=== PATIENT | male | born 1980 | race Two or more races ===

== ENCOUNTER 2023-05-03 22:51 | Emergency (ER) | payer OTHER, SELFPAY ==
[2023-05-03 23:07] VITALS: BP 121/64; PULSE 117; RESP 18; TEMP 37.4; O2SAT 96; BMI 36.7
--- NOTE | 2023-05-04 00:15 | MHC.EDTECH ---
Patient said he not able to give urine sample at this time .
[2023-05-04 00:17] LABS: MANUAL DIFF FLAG NO
[2023-05-04 00:21] LABS: Basophils Percent Auto 0.2 % (0-2); Eosinophils Percent Auto 0.1 % (0-4); Hematocrit 43.4 % (42.0-52.0); Hemoglobin 15.2 g/dl (14.0-18.0); Imm Gran Abs Auto 0.02 X10*3/uL (0.00-0.03); Imm Gran Pct Auto 0.2 % (0.0-0.4); Lymphocytes Absolute Auto 0.5 X10*3/uL (1.2-4.9); Lymphocytes Percent Auto 4.8 % (20-40); Mean Corpuscular Volume 82.7 fL (80.0-98.0); Mean Platelet Volume 10.4 fL (9.4-12.4); Monocytes Absolute Auto 0.7 X10*3/uL (0.1-1.2); Monocytes Percent Auto 7.4 % (2-11); Neutrophils Absolute Auto 8.2 x10*3/uL (2.0-8.3); Neutrophils Percent Auto 87.3 % (45-73); Platelet Count 197 X10*3/uL (160-400); Red Blood Count 5.25 X10*6/uL (4.60-5.80); White Blood Count 9.4 X10*3/uL (4.8-10.8)
[2023-05-04 00:45] LABS: Appearance Urine Clear; Color Urine Yellow; Glucose Urine UA Negative (Negative); Leukocyte Esterase Urine Negative (Negative); Nitrite Urine Negative (Negative); PH 6.5 (5.0-9.0); Specific Gravity - Urine >= 1.030 (1.005-1.025); UMIC TRIGGER UACC YES; Urine Blood Negative (Negative); Urine Ketones Negative (Negative); Urine Protein 30 (1+) mg/dL (Neg-Trace)
[2023-05-04 00:50] LABS: Bacteria Urine None Seen (None Seen); Hyaline Casts Urine 0-2 /LPF (0-2); RBC Urine 0-2 /HPF (0-2); Squamous Epithelial Cell Urine 0-2 /HPF (0-2); WBC Urine 0-5 /HPF (0-5)
[2023-05-04 01:11] LABS: Alanine Aminotransferase 45 U/L (0-40); Albumin Level 4.5 g/dL (3.5-5.0); Alkaline Phosphatase 90 U/L (39-117); Anion Gap 12 (12-20); Aspartate Amino Transferase 34 U/L (5-37); Bilirubin Direct 0.2 mg/dL (0.0-0.5); Bilirubin Total 0.5 mg/dL (0.0-1.0); Blood Urea Nitrogen 19 mg/dL (9-16); Calcium 9.6 mg/dL (8.4-10.2); Carbon Dioxide 25 mmol/L (22-29); Chloride 106 mmol/L (96-108); Creatinine Clr Calc Pharmacy 91.2; Estimated Glomerular Filt Rate > 60; Glucose Random 109 mg/dL (60-115); Lipase 19 U/L (8-78); Potassium 4.2 mmol/L (3.3-5.1); Sodium 139 mmol/L (135-145); Total Protein 7.9 g/dL (6.5-8.0)
[2023-05-04 01:37] VITALS: BP 128/98; PULSE 106; RESP 18; TEMP 37.3; O2SAT 97
--- OUTSIDE RECORDS SUMMARY | 2023-05-04 03:07 | XMS_ITS | Continuity of Care Document ---
Author Name Unknown Organization [facility] ter Address [address] [place] [id number]- Care Team Providers Care Creative Specialist Name Role Phone Not on Staff, PCP Primary Care Physician Unavail able [place] [facility] [place] 10/10/22 - 10/11/[address] [address]- Encounter Diagnosis Headache(Final) - 10/10/22 Discharge Disposition: A-D/C Home Attending Physician: Tonie Ghosh DO Admitting Physician: Tonie Ghosh DO Referring Physician: Not on Staff, Referring MD Allergies, Adverse Reactions, Alerts No Known Allergies Immunizations Given and Recorded Vaccine Date Status Refusal Reason tetanus/diphtheria/pertussis, acel(Tdap) 11/14/13 Given influenza virus vaccine, inactivated 12/25/12 Give n Medications chlorproMAZINE 10 mg oral tablet 1 tablet = 10 mg, By Mouth, Every 6 hours, # 10 tablet, 0 Refills, Maintenance, 10/11/22 0:14:00 EDT, Tablet, [facility]/pharmacy #[id number], Partial fill upon patient request if the prescription is for a schedule II opioid drug., 164, cm, 10/10/22 23:54:00 EDT,... Start Date: 10/11/22 Status: Ordered gabapentin 400 mg oral capsule 1 capsule = 400 mg, By Mouth, 3 times a day, # 90 capsule, 1 Refills, Maintenance, 05/14/15 14:40:30, 1 capsule By Mouth 3 times a day Start Date: 05/14/15 Status: Ordered ibuprofen 600 mg oral tablet 600 mg, 1, tablet, By Mouth, Every 8 hours, # 30 tablet, Refills 0, Tot. Refills 0, Maintenance, 05/25/16 14:02:01, Print Requisition Start Date: 05/25/16 Status: Ordered lidocaine 2% topical gel with applicator 5 mL = 0.1 Gm, Topically, Once, Apply to affected area twice daily, # 30 mL, 1 Refills, Soft Stop, 05/14/15 14:41:51, Gel, Instructions in Hungarian please, 5 mL Topically Once,Instr:Apply to affected area twice daily Start Date: 05/14/15 Status: Ordered Lidoderm 5% film 1 patch, Topically, Daily, remove patches after 12 hours, # 7 patch, 0 Refills, Maintenance, 08/01/18 11:32:51 EDT Start Date: 08/01/18 Stop Date: 08/08/18 Status: Ordered traMADol 50 mg oral tablet 1 tablet = 50 mg, By Mouth, Every 4 hours, PRN Pain, # 12 tablet, 0 Refills, Maintenance, 07/14/17 5:50:13 EDT, Tablet Start Date: 07/14/17 Status: Ordered Problem List Condition Confirmation Course Effective Dates Status H ealth Status Informant Anemia associated with acute blood loss Confirmed 07/18/12 Active Chronic back pain Confirmed Active Contusion of Chest Wall Confirmed 07/18/12 Active Depression Confirmed Active History of lipoma Confirmed Active Multiple closed fractures of ribs Confirmed 07/18/12 Active Obese class II Confirmed Active Obesity Confirmed Active Postoperative infection Confirmed Active Traumatic hemothorax Confirmed Active Traumatic pneumothorax without open wound into thorax Confirmed Active Results Radiology Reports * Exam Date Time Procedure Performing Provider Status 10/10/22 11:[address] Angio Neck Yared Catalan Au th (Verified) Notes: (CT Angio Neck) Reason For Exam: ? vertebral diseection;Other: RESULT: CT Angio Neck CT Angio Head, CT Angio Neck Hx of Present Illness: Atraumatic headache and neck pain x3 weeks, took tylenol with no relief; Reason: Other:; ? vertebral dissection; Clinical Question(s): Other: / Other: TECHNIQUE: CT angiogram of the head and neck was performed after bolus administration of intravenous contrast. 100 mL of Omnipaque 300 was administered intravenously. Coronal and sagittal MIP reformatted images were obtained. Additional 3-D images were created on a separate workstation under concurrent supervision by the attending radiologist. All stenoses are measured using NASCET criteria. Weight-based protocol using automatic tube modulation was used to optimize exposure parameters. RADIATION DOSE PARAMETERS: CTDIvol Body: 20.23 mGy, DLP Body: 576 mGy*cm. CTDIvol Head: 48.10 mGy, DLP Head: 772 mGy*cm. COMPARISON: Noncontrast CT head performed concurrently. FINDINGS: CTA OF THE NECK: Arch: There is a three vessel aortic arch. The origins of the supra aortic vessels are patent. Right carotid system: The common carotid and cervical internal carotid arteries are patent. No stenosis (0%) by NASCET criteria. Left carotid system: The common carotid and cervical internal carotid arteries are patent. No stenosis (0%) by NASCET criteria. There is a scwqed-svan-vcmgidus vertebral artery system. Right vertebral: Patent. There is no dissection. Left vertebral: Patent. There is no dissection. Other: Soft tissues and bones: No evidence of lymphadenopathy or mass. The thyroid is unremarkable. Visualized lung apices are clear. No acute osseous abnormality. CTA OF THE HEAD: Anterior circulation: Bilateral intracranial ICAs and their ADRIANNA and MCA branches are patent. Posterior circulation: Bilateral intracranial vertebral arteries, the basilar artery, and bilateralsuperior cerebellar and posterior cerebral artery branches are patent. Tiny bilateral posterior communicating arteries are noted. Veins: Major dural venous sinuses are patent. Other: Soft tissues and bones: No midline shift or effacement of the basal cisterns. No space-occupying hemorrhage. No territorial loss of villagomez-white matter differentiation. Orbits are unremarkable. No significant opacification in the paranasal sinuses or mastoid air cells. IMPRESSION: No proximal occlusion or high grade stenosis in the major arteries of the head and neck. A similar preliminary report was provided by [facility]. WSN: [id number] Ordering Physician: Tonie Ghosh Dictated By: Kiara Cox MD Dictated Date/Time: 10/11/22 8:51 am Reviewed By: iKara Cox MD Signed By: Kiara Cox MD Signed Date/Time: 10/11/22 8:51 am Transcribed By: KIM Transcribed Date/Time: 10/11/22 8:46 am * Exam Date Time Procedure Performing Provider Status 10/10/22 11:[address] Angio Head Yared Catalan; Au (Verified) Notes: (CT Angio Head) Reason For Exam: ? vertebral diseection;Other: RESULT: CT Angio Head CT Angio Head, CT Angio Neck Hx of Present Illness: Atraumatic headache and neck pain x3 weeks, took tylenol with no relief; Reason: Other:; ? vertebral dissection; Clinical Question(s): Other: / Other: TECHNIQUE: CT angiogram of the head and neck was performed after bolus administration of intravenous contrast. 100 mL of Omnipaque 300 was administered intravenously. Coronal and sagittal MIP reformatted images were obtained. Additional 3-D images were created on a separate workstation under concurrent supervision by the attending radiologist. All stenoses are measured using NASCET criteria. Weight-based protocol using automatic tube modulation was used to optimize exposure parameters. RADIATION DOSE PARAMETERS: CTDIvol Body: 20.23 mGy, DLP Body: 576 mGy*cm. CTDIvol Head: 48.10 mGy, DLP Head: 772 mGy*cm. COMPARISON: Noncontrast CT head performed concurrently. FINDINGS: CTA OF THE NECK: Arch: There is a three vessel aortic arch. The origins of the supra aortic vessels are patent. Right carotid system: The common carotid and cervical internal carotid arteries are patent. No stenosis (0%) by NASCET criteria. Left carotid system: The common carotid and cervical internal carotid arteries are patent. No stenosis (0%) by NASCET criteria. There is a vmymci-xyfm-rfbidaih vertebral artery system. Right vertebral: Patent. There is no dissection. Left vertebral: Patent. There is no dissection. Other: Soft tissues and bones: No evidence of lymphadenopathy or mass. The thyroid is unremarkable. Visualized lung apices are clear. No acute osseous abnormality. CTA OF THE HEAD: Anterior circulation: Bilateral intracranial ICAs and their ADRIANNA and MCA branches are patent. Posterior circulation: Bilateral intracranial vertebral arteries, the basilar artery, and bilateralsuperior cerebellar and posterior cerebral artery branches are patent. Tiny bilateral posterior communicating arteries are noted. Veins: Major dural venous sinuses are patent. Other: Soft tissues and bones: No midline shift or effacement of the basal cisterns. No space-occupying hemorrhage. No territorial loss of villagomez-white matter differentiation. Orbits are unremarkable. No significant opacification in the paranasal sinuses or mastoid air cells. IMPRESSION: No proximal occlusion or high grade stenosis in the major arteries of the head and neck. A similar preliminary report was provided by [facility]. WSN: [id number] Ordering Physician: Tonie Ghosh Dictated By: Kiara Cox MD Dictated Date/Time: 10/11/22 8:51 am Reviewed By: Kiara Cox MD Signed By: Kiara Cox MD Signed Date/Time: 10/11/22 8:51 am Transcribed By: KIM Transcribed Date/Time: 10/11/22 8:46 am * Exam Date Time Procedure Performing Provider Status 10/10/22 11:[address] Head/Brain W/O Contrast Yared Catalan; Cleo (Verified) Notes: (CT Head/Brain W/O Contrast) Reason For Exam: ? headache;Other: RESULT: CT Head/Brain W/O Contrast CT Head/Brain W/O Contrast INDICATION: Hx of Present Illness: Atraumatic headache and neck pain x3 weeks, took tylenol with norelief; Reason: Other:; ? headache; Clinical Question(s): Other: TECHNIQUE: Noncontrast head CT using axial technique and reconstructed in axial and coronal planes.Iterative reconstruction techniques are used to optimize dose and image quality. CTDIvol Head: 48.10 mGy, DLP Head: 772 mGy*cm. COMPARISON: None. FINDINGS: Boat Canvas Maker Installer view findings, lines and tubes: None. BRAIN AND EXTRA-AXIAL SPACES: No parenchymal hemorrhage, midline shift, or mass effect. Villagomez-white matter differentiation is wellpreserved. No acute infarct. Ventricles, sulci, and basilar cisterns are normal. No white matter lesions. No subarachnoid hemorrhage. No subdural or epidural collection. CALVARIUM, SKULL BASE, AND SOFT TISSUES: No fractures or suspicious bony lesions. The paranasal sinuses and mastoid air cells are clear. Visualized orbits and globes are intact. The extracranial soft tissues are unremarkable. IMPRESSION: No acute intracranial pathology. WSN: [id number] Ordering Physician: Tonie Ghosh Dictated By: Dave Keen MD Dictated Date/Time: 10/10/22 11:05 p Reviewed By: Dave Keen MD Signed By: Dave Keen MD Signed Date/Time: 10/10/22 11:05 pm Transcribed By: KIM Transcribed Date/Time: 10/10/22 11:05 pm Vital Signs Most recent to oldest [Reference Range]: 1 2 3 Height 164 cm (10/10/22 11:54 PM) 164 cm (10/10/22 9:29 PM) 164 cm (10/10/22 5:55 PM) Weight 99 kg (10/10/22 11:54 PM) 99 kg (10/10/22 9:29 PM) 99 kg (10/10/22 5:55 PM) Oxygen Saturation [94-100 %] 99 % (10/11/22 1:18 AM) 100 % (10/10/22 11:54 PM) 99 % (10/10/22 9:29 PM) Pulse Rate [55-90 bpm] 64 bpm (10/11/22 1:18 AM) 70 bpm (10/10/22 11:54 PM) 63 bpm (10/10/22 9:29 PM) Body Mass Index [18.5-24.99 kg/m2] 36.81 kg/m2 *>HHI* (10/10/22 11:54 PM) 36.81 kg/m2 *>HHI* (10/10/22 9:29 PM) 36.81 kg/m2 *>HHI* (10/10/22 5:55 PM) Blood Pressure [90-138/55-84 mm Hg] 135/98mm Hg (10/11/22 1:18 AM) 133/104mm Hg (10/10/22 11:54 PM) 143/87mm Hg *H* (10/10/22 9:29 PM) Respiratory Rate [16-30 br/min] 20 br/min (10/11/22 1:18 AM) 19 br/min (10/10/22 11:54 PM) 19 br/min (10/10/22 9:29 PM) Temperature [96.8-100.4 DegF] 98.2 DegF (10/10/22 11:54 PM) 97.7 DegF (10/10/22 9:29 PM) 98.7 DegF (10/10/22 5:55 PM) Mode of Delivery (Oxygen) Room air (10/11/22 1:18 AM) Room air (10/10/22 11:54 PM) Room air (10/10/22 9:29 PM) Blood pressure sites Arm, left (10/11/22 1:18 AM) Arm, right (10/10/22 11:54 PM) Arm, right (10/10/22 9:29 PM) Temperature Route Oral (10/10/22 11:54 PM) Oral (10/10/22 9:29 PM) Oral (10/10/22 5:55 PM) Dry Weight 99 kg (10/10/22 11:54 PM) 99 kg (10/10/22 9:29 PM) 99 kg (10/10/22 5:55 PM) Weight Obtained Via Patient/family state d (10/10/22 5:55 PM) Dry Weight Obtained Via Patient/family s tated (10/10/22 5:55 PM) Social History Social History Type Response Smoking Status Never smoker entered on: 05/07/14 Sex Note * Tonie Ghosh DO: PERFORM, SIGN, VERIFY Event Display: Patient Education Handout Authored Date: [id number] * Tonie Ghosh DO: PERFORM Event Display: Patient Education Leaflets Authored Date: [id number] Headache, Unspecified ?? [id number] Dolor de tiffanie no espec??fico Hay muchas cosas que pueden causar gabriel de tiffanie. La causa de resendez dolor de tiffanie no es bakari. Kvng, no parece ser mary se??al de ninguna enfermedad grave. El dolor de tiffanie afecta a caryl todas las personas en alg??n momento de resendez evi. Es el motivo m??s com??n por el que las personas faltan al trabajo o a la escuela. Puede que tenga un dolor de tiffanie tensional o un dolor de tiffanie por migra??a. El estr??s puede causar un dolor de tiffanie tensional. [place] puede ocurrir si tensa los m??sculos de los hombros, del viet y el cuero cabelludo sin darse cuenta. Si el estr??s dura el tiempo suficiente, puede desarrollar un dolor de tiffanie tensional. No est?? bora por qu?? ocurren las migra??as, kvng existen determinadas cosas llamadas ???desencadenantes?? que pueden aumentar el riesgo de sufrir un ataque de migra??a. Los desencadenantes de migra??as pueden incluir el estr??s emocional o la depresi??n, o los cambios hormonales que se producendurante el ciclo menstrual. Otros desencadenantes incluyen las pastillas anticonceptivas y otros medicamentos, las bebidas alcoh??licas o la cafe??na, los alimentos con tiramina (mendel el queso o el vino estacionados), la fatiga ocular, los cambios clim??ticos, saltearse comidas y la falta de rosana??oo dormir demasiadas horas. Otras cosas que pueden causar un dolor de tiffanie son las siguientes: ??? Enfermedad viral con fiebre diya ??? Lesi??n en la tiffanie con conmoci??n ??? Infecci??n de los senos paranasales, de los o??dos o de la garganta ??? Dolor dental y mandibular (ADRIANNA) Otras causas m??s graves, kvng menos comunes que producen dolor de tiffanie incluyen ataques o derrames cerebrales, hemorragias cerebrales, tumores cerebrales, meningitis y encefalitis. Cuidados en el hogar Siga estos consejos para cuidarse en el hogar: ??? No conduzca hasta resendez casa si le dieron medicamentos analg??sicos para resendez dolor de tiffanie. Coordine para que otra persona lo lleve a casa. Cuando llegue a casa, intente dormir. Se sentir?? mucho mejor cuando despierte. ??? Aplique calor en la parte posterior de resendez viet para aliviar un espasmo muscular del viet. En dorcas de dolor de tiffanie por migra??a, p??ngase mary compresa de hielo sobre la frente o en la base del cr??negra. ??? Si tiene n??useas o v??mitos, siga mary dieta liviana hasta tanto el dolor de tiffanie se alivie. ??? Si tiene un dolor de tiffanie por migra??a, use lentes de chon cuando salga a la alexis del d??a o se encuentre en lugares interiores con iluminaci??n brillante, hasta que syd s??ntomas se alivien. La alexis baakri y muy brillante puede empeorar tonio tipo de dolor de tiffanie. ?? Seguimiento Asista a los controles con resendez proveedor de atenci??n m??dica o rosalina lo que le hayan indicado. Hablecon resendez proveedor si tiene gabriel de tiffanie frecuentes. El proveedor puede ayudarle con un plan de tratamiento. Si conoce los primeros signos del dolor de tiffanie y comienza el tratamiento de inmediato, quiz??s pueda detener el dolor usted mismo. ?? Cu??ndo buscar atenci??n m??dica Llame a resendez proveedor de atenci??n m??dica de inmediato ante cualquiera de las siguientes situaciones: ??? Resendez dolor de tiffanie empeora repentinamente despu??s de las relaciones sexuales o las actividades extenuantes. ??? Resendez dolor de tiffanie no se evelio en un plazo de 24??horas ??? No puede retener los l??quidos en el est??tessa (tiene v??alexander persistente) ??? Fiebre de 100.4?F??(38?C) o m??s diya, o seg??n se lo indique resendez proveedor de atenci??n m??dica ??? Viet r??gido ??? Amy somnolencia, confusi??n o desmayos ??? Mareos o mareos con sensaci??n de que todo da vueltas (v??rtigo) ??? Debilidad en un brazo o mary pierna, o en un lado de la lyudmila ??? Tiene dificultades para hablar o minoo ?? Last Reviewed Date: 2015 ?? [id number] [employer]. All rights reserved. This information is not intended as a substitute for professional medical care. Always follow your healthcare professional's instructions. ?? Patient Care team information Care Team Personnel Name: Maria Antonia Capps NP Position: [facility] Associate Professional Member Role: Primary Care Nurse Address: Address: [address] [place] [address] Trauma and Acute Care Surgery [address] Name: Not on Staff, PCP Position: [facility] Physician (General Medicine) Member Role: PCP Name: Tonie Ghosh DO Position: [facility] Resident Member Role: ED Attending Physician Address: Address: [address] [place] [address] [place] [address]- Name: Brianna Cabello RN Position: [facility] ED RN W/OE and Tasks Member Role: Patient Care Provider Care Team Related Persons Name: EFREN URBANO Address: [address] [address] Name: EFREN DOTY Address: home [address] [place] [address] Name: RAYMON GRANT Address: [place] [address] Name: LIV GRANT
[2023-05-04 04:08] LABS: COVID-19 Test Negative (Negative); IDNOW Serial# 08D9AD1C; IDNOW Serial# 152EDE1D; Influenza A Negative (Negative); Influenza B2 Negative (Negative)
--- NOTE | 2023-05-04 04:35 | ED_ITS ---
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 Mode of arrival: ambulatory History of Present Illness HPI narrative: 42-year-old male with presentation of nausea but no vomiting those abdominal discomfort and a few episodes of diarrhea that is nonbloody in nature denies any fever, chills reports body aches otherwise no shortness of breath or chest pain and no urinary symptoms Related Data Allergies Allergy/AdvReac Type Severity Reaction Status Date / Time No Known Allergies Allergy Verified 05/03/23 23:10 Review of Systems Review of Systems Pertinent positives and negatives as stated [facility] Past Medical History Source: nursing notes reviewed Social History Social History Advance Directives: No Advance Directives Information Provided: Yes Physical Exam ED Vital Signs: Vital Signs - 24 hr 05/03/23 23:07 05/04/23 01:37 Temperature 99.4 F 99.2 F Pulse Rate 117 H 106 H Respiratory Rate 18 18 Blood Pressure 121/64 128/98 H Pulse Oximetry 96 97 Oxygen Delivery Method Room Air BMI result Body Mass Index 36.7 VITAL SIGNS: Reviewed. GENERAL: Well developed, well nourished, in no acute distress. HEAD: Normocephalic/atraumatic EYES: PERRLA, EOMI EARS: Ext canals without abnormality, TMs non-bulging and non-erythematous NOSE: Nares patent bilateral OROPHARYNX: no oral lesions noted, posterior pharynx clear and non-erythematous without noted tonsillar enlargement/erythema/exudates NECK: Supple, no adenopathy LUNGS: Normal breath sounds. No adventitious sounds or accessory muscle use. SpO2<97> CARDIOVASCULAR: Regular rate and rhythm without noted murmurs ABDOMEN: Soft, non-tender, non-distended with bowel sounds. MUSCULOSKELETAL: No tenderness, deformities, or effusions noted on gross inspection. EXTREMITIES: No cyanosis, clubbing or edema. SKIN: Inspection of the skin reveals no rashes NEUROLOGIC: Alert and oriented x 4. Strength and sensation to light touch were grossly intact x 4. Medical Decision Making Medical Decision Making MDM Narrative: 42-year-old male with history and clinical presentation, DDX: Viral syndrome, gastroenteritis, UTI, no clinical suspicion for obstruction/appendicitis. Reviewed all investigations and hematologic indices are negative for leukocytosis/anemia/thrombocytopenia. Chemistry indices negative for evidence of VERÓNICA/electrolyte or liver enzyme derangements, lipase is within normal limits. Urinalysis negative for UTI or hematuria. Viral testing negative for COVID- 19/influenza. My interpretation is at patient likely has a viral syndrome Differential Diagnosis Differential Diagnoses: The differential diagnosis associated with the presentation includes Please see the discussion above Admission/Observation Consideration of admission/observation: Escalation of care including admission/observation considered Please see the discussions about Lab Data MDM Lab Attestation statement: I reviewed the patient's lab results. Please see the discussions 05/04/23 00:13 05/04/23 00:13 Labs: Lab Results 05/04/23 05/04/23 05/04/23 Range/Units 00:13 00:36 03:46 WBC 9.4 (4.8-10.8) X10*3/uL RBC 5.25 (4.60-5.80) X10*6/uL Hgb 15.2 (14.0-18.0) g/dl Hct 43.4 (42.0-52.0) % MCV 82.7 (80.0-98.0) fL MCH 29.0 (27.0-33.0) pg MCHC 35.0 (31.0-36.0) g/dl RDW 13.0 (11.0-16.0) % Plt Count 197 (160-400) X10*3/uL MPV 10.4 (9.4-12.4) fL Immature Gran % (Auto) 0.2 (0.0-0.4) % Neut % (Auto) 87.3 H (45-73) % Lymph % (Auto) 4.8 L (20-40) % [place] % (Auto) 7.4 (2-11) % Eos % (Auto) 0.1 (0-4) % Baso % (Auto) 0.2 (0-2) % Lymph # (Auto) 0.5 L (1.2-4.9) X10*3/uL [place] # (Auto) 0.7 (0.1-1.2) X10*3/uL Eos # (Auto) 0.0 (0.0-0.4) X10*3/uL Baso # (Auto) 0.0 (0.0-0.2) X10*3/uL Abs Immat Gran (auto) 0.02 (0.00-0.03) X10*3/uL Absolute Neuts (auto) 8.2 (2.0-8.3) x10*3/uL Absolute Nucleated RBC 0.000 (0.0-0.012) X10*3/uL Nucleated RBC % (auto) 0.0 (0.0-0.2) /100WBC Sodium 139 (135-145) mmol/L Potassium 4.2 (3.3-5.1) mmol/L Chloride 106 (96-108) mmol/L Carbon Dioxide 25 (22-29) mmol/L Anion Gap 12 (12-20) BUN 19 H (9-16) mg/dL Creatinine 1.12 (0.5-1.4) mg/dL Estim Creat Clear Calc 91.2 Estimated GFR > 60 Random Glucose 109 (60-115) mg/dL Calcium 9.6 (8.4-10.2) mg/dL Total Bilirubin 0.5 (0.0-1.0) mg/dL Direct Bilirubin 0.2 (0.0-0.5) mg/dL AST 34 (5-37) U/L ALT 45 H (0-40) U/L Alkaline Phosphatase 90 (39-117) U/L Total Protein 7.9 (6.5-8.0) g/dL Albumin 4.5 (3.5-5.0) g/dL Lipase 19 (8-78) U/L Urine Color Yellow Urine Appearance Clear Urine pH 6.5 (5.0-9.0) Ur Specific [place] >= 1.030 H (1.005-1.025) Urine Protein 30 (1+) H (Neg-Trace) mg/dL Urine Glucose (UA) Negative (Negative) mg/dL Urine Ketones Negative (Negative) mg/dL Urine Blood Negative (Negative) Urine Nitrite Negative (Negative) Ur Leukocyte Esterase Negative (Negative) Urine RBC 0-2 (0-2) /HPF Urine WBC 0-5 (0-5) /HPF Ur Squamous Epith Cells 0-2 (0-2) /HPF Urine Bacteria None Seen (None Seen) Hyaline Casts 0-2 (0-2) /LPF COVID-19 ([facility]AG[facility]) Negative (Negative) COVID-19 Clin Com See Note Influenza Type A (LETY) Negative (Negative) Influenza Type B (LETY) Negative (Negative) Influenza A & B Note See Note Discharge Plan Discharge Clinical Impression: Gastroenteritis Patient Disposition: Home, Self-Care Instructions: Gastroenteritis (ED), Nutrition Tips for Relief of Diarrhea (ED) Additional Instructions: 1. Recomiende Tylenol/ibuprofeno de venta griselda seg?n sea necesario para gabriel corporales, gabriel de tiffanie y temperaturas superiores a 100,4. 2. Contin?e manteni?ndose tobias hidratado. 3. Momo un seguimiento con du m?dico de atenci?n primaria en los pr?ximos 1 o 2 d?as. Regrese a la marianne de emergencias si los s?ntomas empeoran. 1. Recommend blss-iez-klultvp Tylenol/ibuprofen as needed for body aches, headaches, temperatures greater than 100.4. 2. Continue to stay well hydrated. 3. Please follow-up with primary care doctor in the next 1-2 days. Return to the ER for any worsening symptoms. Print Language: English
[2023-05-04 05:40] VITALS: PULSE 112; RESP 18; TEMP 37.5; O2SAT 95
[2023-05-04] MEDS: Acetaminophen 325 MG TABLET 975 MG PO (05:53)
[2023-05-04] MEDS: Ondansetron ODT 4 MG TAB.RAPDIS TRANSLINGU (05:54)
[2023-05-04] MEDS: Ibuprofen 400 MG TABLET PO (05:54)
== END 2023-05-04 05:50 | disposition home or self-care (01) ==
PROVIDERS: Emergency Provider Student in an Organized Health Care Education/Training Program
DX: K52.9 Noninfective gastroenteritis and colitis, unspecified (principal); Z11.52 Encounter for screening for COVID-19; R50.9 Fever, unspecified
CPT/HCPCS: 36415; 80053; 81001; 82248; 83690; 85025; 87502; 87635; 99284